=== PATIENT | female | born 1995 | race Caucasian/White ===

== ENCOUNTER 2018-10-01 14:46 | Inpatient (IN) | payer BC ==
--- NOTE | 2018-10-01 16:11 | ER Document Report ---
ED GI/ - General Chief Complaint: Abdominal Pain Stated Complaint: ABDOMINAL PAIN Time Seen by Provider: 10/01/18 16:02 Mode of Arrival: Ambulatory Information source: Patient Notes: 22-year-old female presented to ED for complaint of cough cold congestion runny nose pain, pain bilateral upper abdomen under the ribs, lower abdominal pain, no back pain anywhere. She went to [facility] this morning with a elevated temp of 102.7 and they did an EKG urine urine flu CBC and sent results with her. Patient is alert oriented respirations regular and unlabored speaking in full sentences. TRAVEL OUTSIDE OF THE [place] IN LAST 30 DAYS: No - HPI Patient complains to provider of: Abdominal pain - Upper abdomen and lower abdomen. No: Flank pain, , Vomiting Onset: Last week Timing/Duration: Intermittent Quality of pain: Achy, Sharp Severity at maximum: Moderate Severity in ED: Moderate Pain Level: 3 Location: RUQ, Suprapubic, Pelvis LMP: now Associated symptoms: Nausea. denies: Radiates to shoulder, Urinary frequency, Urinary urgency, Vomiting Exacerbated by: Deep breathing Relieved by: Denies Similar symptoms previously: Yes Recently seen / treated by doctor: Yes - Related Data Allergies/Adverse Reactions: prednisone Allergy (Verified 10/01/18 14:50) rynatan Allergy (Uncoded 10/01/18 15:48) Past Medical History - General Information source: Patient - Social History Smoking Status: Never Smoker Cigarette use (# per day): No Chew tobacco use (# tins/day): No Smoking Education Provided: No Frequency of alcohol use: Social Drug Abuse: None Family History: Reviewed & Not Pertinent Patient has suicidal ideation: No Patient has homicidal ideation: No - Past Medical History Cardiac Medical History: Reports: None Pulmonary Medical History: Reports: Hx Asthma EENT Medical History: Reports: None Neurological Medical History: Reports: None Endocrine Medical History: Reports: None Renal/ Medical History: Reports: None Malignancy Medical History: Reports: None GI Medical History: Reports: None Musculoskeletal Medical History: Reports None Skin Medical History: Reports None Psychiatric Medical History: Reports: None Traumatic Medical History: Reports: None Infectious Medical History: Reports: None Surgical Hx: Negative Past Surgical History: Reports: None - Immunizations Immunizations up to date: Yes Review of Systems - Review of Systems Constitutional: Chills, Fever, Recent illness EENT: Nose discharge, Sinus discharge Cardiovascular: No symptoms reported Respiratory: Cough Gastrointestinal: Abdominal pain, Nausea Genitourinary: No symptoms reported Female Genitourinary: No symptoms reported Musculoskeletal: No symptoms reported Skin: No symptoms reported Hematologic/Lymphatic: No symptoms reported Neurological/Psychological: No symptoms reported -: Yes All other systems reviewed and negative Physical Exam - Vital signs Vitals: Temp Pulse Resp BP Pulse Ox 99.9 F 106 H 18 115/75 98 10/01/18 14:52 10/01/18 14:52 10/01/18 14:52 10/01/18 14:52 10/01/18 14:52 Interpretation: Normal - General General appearance: Appears well, Alert - HEENT Head: Normocephalic, Atraumatic Eyes: Normal Pupils: PERRL Ears: Normal External canal: Normal Tympanic membrane: Normal Sinus: Normal - Respiratory Respiratory status: No respiratory distress Chest status: Nontender Breath sounds: Normal Chest palpation: Normal - Cardiovascular Rhythm: Regular Heart sounds: Normal auscultation Murmur: No - Abdominal Inspection: Normal Distension: No distension Bowel sounds: Normal Tenderness: Nontender Organomegaly: No organomegaly - Back Back: Normal, Nontender - Extremities General upper extremity: Normal inspection, Nontender, Normal color, Normal ROM, Normal temperature General lower extremity: Normal inspection, Nontender, Normal color, Normal ROM, Normal temperature, Normal weight bearing. No: Naa María's sign - Neurological Neuro grossly intact: Yes Cognition: Normal Orientation: AAOx4 Hayward Coma Scale Eye Opening: Spontaneous Hayward Coma Scale Verbal: Oriented Caroline Coma Scale Motor: Obeys Commands Hayward Coma Scale Total: 15 Speech: Normal Motor strength normal: LUE, RUE, LLE, RLE Sensory: Normal - Psychological Associated symptoms: Normal affect, Normal mood - Skin Skin Temperature: Warm Skin Moisture: Dry Skin Color: Normal Course - Re-evaluation Re-evalutation: 10/01/18 21:[address]k Ferris again due to the results of the ultrasound. She recommended following up with the surgeon. Dr. Melton was consulted. He will come in and examined the patient. Patient has been given reports of the labs and ultrasound report and informed that the surgery will be coming into examine her and determine her disposition. - Vital Signs Vital signs: Temp Pulse Resp BP Pulse Ox 97.4 F 92 18 112/67 100 10/01/18 18:29 10/01/18 18:29 10/01/18 18:29 10/01/18 18:29 10/01/18 18:29 - Laboratory Result Diagrams: 10/01/18 16:28 10/01/18 16:28 Laboratory results interpreted by me: 10/01/18 10/01/18 10/01/18 16:28 16:28 16:28 Seg Neutrophils % 88.3 H Lymphocytes % 5.3 L Absolute Lymphocytes 0.3 L AST 89 H ALT 81 H Alkaline Phosphatase 36 L Urine Protein 30 H Urine Ketones 80 H Urine Urobilinogen 2.0 H - Diagnostic Test Radiology reviewed: Image reviewed, Reports reviewed Discharge - Discharge Clinical Impression: abdominal pain with elevated enzymes, cholecytitis on ultrasound Disposition: ADMITTED INPATIENT [facility] Admitted: Medical Floor
[2018-10-01] MEDS ORDERED: NORMAL SALINE 1000 ML 1,000 ML IV ONE (16:12)
--- NOTE | 2018-10-01 16:34 | RADIOLOGY REPORT (SQ) ---
EXAM DESCRIPTION: CHEST 2 VIEWS COMPLETED DATE/TIME: 10/01/2018 4:22 pm REASON FOR STUDY: upper abdominal pain under the ribs bilaterally COMPARISON: 08/06/2007 EXAM PARAMETERS: NUMBER OF VIEWS: two views TECHNIQUE: Digital Frontal and Lateral radiographic views of the chest acquired. RADIATION DOSE: NA LIMITATIONS: none FINDINGS: LUNGS AND PLEURA: Mild prominence of the interstitial markings in the right infrahilar re gion may be on the basis of infiltrate. The left lung is clear. No pneumothorax or pleural effusion . MEDIASTINUM AND HILAR STRUCTURES: No masses or contour abnormalities. HEART AND VASCULAR STRUCTURES: Heart normal size. No evidence for failure. BONES: No acute findings. HARDWARE: None in the chest. OTHER: No other significant finding. IMPRESSION: 1. Mild prominence of the interstitial markings in the right infrahilar region may repr esent infiltrate. TECHNICAL DOCUMENTATION: JOB ID: [id number] [employer]- All Rights Reserved Reading location - IP/workstation name: [email or web address]
[2018-10-01 16:43] LABS: ABSOLUTE LYMPHOCYTES (AUTO) 0.3 10^3/uL (0.5-4.7); ABSOLUTE MONOCYTES (AUTO) 0.3 10^3/uL (0.1-1.4); ABSOLUTE NEUT (AUTO) 4.8 10^3/uL (1.7-8.2); BASOPHILS % (AUTO) 0.4 % (0-2); HEMATOCRIT 36.8 % (36.0-47.0); HEMOGLOBIN 12.8 g/dL (12.0-15.5); LYMPHOCYTES % (AUTO) 5.3 % (13-45); MEAN CORPUSCULAR HGB CONC 34.7 g/dL (32.0-36.0); MEAN CORPUSCULAR VOLUME 92 fl (80-97); PLATELET COUNT 207 10^3/uL (150-450); RED CELL DISTRIBUTION WIDTH 13.2 % (11.5-14.0); SEGMENTED NEUTROPHILS % (AUTO) 88.3 % (42-78); TOTAL CELLS COUNTED % (AUTO) 100 %; WHITE BLOOD COUNT 5.4 10^3/uL (4.0-10.5)
[2018-10-01 17:07] LABS: ALANINE AMINOTRANSFERASE 81 U/L (9-52); ALBUMIN 4.4 g/dL (3.5-5.0); ALKALINE PHOSPHATASE 36 U/L (38-126); ANION GAP 12 (5-19); ASPARTATE AMINO TRANSFERASE 89 U/L (14-36); BILIRUBIN,DIRECT 0.2 mg/dL (0.0-0.4); BILIRUBIN,TOTAL 0.6 mg/dL (0.2-1.3); BLOOD UREA NITROGEN 10 mg/dL (7-20); CALCIUM 9.2 mg/dL (8.4-10.2); CARBON DIOXIDE 22 mmol/L (22-30); CHLORIDE 105 mmol/L (98-107); GLUCOSE 87 mg/dL (75-110); LIPASE 55.5 U/L (23-300); SODIUM 139.2 mmol/L (137-145); TOTAL PROTEIN 6.9 g/dL (6.3-8.2)
[2018-10-01 17:39] LABS: APPEARANCE,URINE CLEAR; BILIRUBIN,URINE NEGATIVE (NEGATIVE); COLOR,URINE YELLOW; GLUCOSE, URINE NEGATIVE (NEGATIVE); KETONES,URINE 80 mg/dL (NEGATIVE); LEUKOCYTE ESTERASE,URINE NEGATIVE (NEGATIVE); NITRITE,URINE NEGATIVE (NEGATIVE); PROTEIN,URINE 30 mg/dL (NEGATIVE); URINE SPECIFIC GRAVITY 1.035
--- NOTE | 2018-10-01 21:00 | RADIOLOGY REPORT (SQ) ---
EXAM DESCRIPTION: US ABDOMEN DOPPLER LIMITED COMPLETED DATE/TME: 10/01/2018 17:32 CLINICAL HISTORY: right upper abdominal tenderness COMPARISON: None. FINDINGS: Visualized portions of the aorta are of normal caliber. Pancreas is of normal echogenicity. There is no peripancreatic fluid collection. Echogenicity of the liver is within normal limits. The right kidney demonstrates no hydronephrosis. The right kidney measures 10.2 cm in length. There are no gallstones. There is mild gallbladder wall thickening. Common bile duct measured 2.7 mm which is within limits. There is a small amount of pericholecystic fluid. IMPRESSION: Mild gallbladder wall thickening and small amount of pericholecystic fluid could be secondary to acalculus cholecystitis. Other etiologies including hyperalbuminemia are differential considerations. If indicated follow-up CT could be helpful for further evaluation.
[2018-10-01] MEDS ORDERED: MAGNESIUM HYDROXIDE SUSP 30 ML UDCUP PO PRN (23:37)
[2018-10-01] MEDS ORDERED: ONDANSETRON HCL INJ/PF 4 MG/2 ML SDV IV PRN (23:37)
[2018-10-01] MEDS ORDERED: ONDANSETRON 4 MG TAB.RAPDIS PO PRN (23:37)
[2018-10-01] MEDS ORDERED: DEXTROSE 5%-LACTATED RINGERS 1,000 ML IV PRN (23:37)
[2018-10-01] MEDS ORDERED: MAG HYDROX/AL HYDROX/SIMETH SUSP 30 ML UDCUP PO PRN (23:37)
--- NOTE | 2018-10-02 01:41 | RADIOLOGY REPORT (SQ) ---
EXAM DESCRIPTION: CT ABDOMEN PELVIS WITH IV CONTRAST COMPLETED DATE/TME: 10/02/2018 00:00 CLINICAL HISTORY: 22 years, Female, possible cholecystitis, RUQ pain, fever COMPARISON: Ultrasound from 10/01/2018 TECHNIQUE: 479 Images stored on PACS. All CT scanners at this facility use dose modulation, iterative reconstruction, and/or weight based dosing when appropriate to reduce radiation dose to as low as reasonably achievable (ALARA). [facility]: Dose Right [facility]: CareDose [facility]: Dose Right [facility]: Teradose 4D [facility]: [employer] LIMITATIONS: None. FINDINGS: Limited evaluation of the lung bases is unremarkable. Osseous structures are grossly intact. The liver, spleen, adrenal glands, pancreas, kidneys are unremarkable. There is nonspecific periportal edema. Gallbladder wall edema and/or pericholecystic fluid is noted. No gallstones were present on ultrasound however the possibility of acalculous cholecystitis should be considered. No free air. No evidence for bowel obstruction. Small amount of free fluid in the pelvis. Normal appendix. IMPRESSION: Diffuse gallbladder wall edema and/or pericholecystic fluid. No gallstones were present on recent ultrasound however the possibility of acalculous cholecystitis could be considered in the appropriate clinical setting. Small amount of free fluid in the pelvis. This may be physiologic. TECHNICAL DOCUMENTATION: Quality ID # [id number]: Final reports with documentation of one or more dose reduction techniques (e.g., Automated exposure control, adjustment of the mA and/or kV according to patient size, use of iterative reconstruction technique) copyright 2011 [employer]- All Rights Reserved
[2018-10-02] MEDS ORDERED: NALBUPHINE HCL INJ 10 MG/1 ML AMPULE IV PRN ×2 (03:51→04:00)
--- NOTE | 2018-10-02 03:57 | PDOC H&P ---
History of Present Illness Admission Date/PCP: 10/01/2018 Patient complains of: Epigastric pain History of Present Illness: MASOUD NAIR is a 22 year old female who presented to the emergency room with an acute history of epigastric abdominal pain beginning on the morning prior to coming to the emergency room. She admits to moderate to severe, constant, gripping pressure, present in the epigastric region and to a lesser degree in the right upper quadrant of her abdomen without radiation. The pain is been accompanied by a fever of 102.6 F earlier today when she presented to the urgent care center where she was subsequently sent on to the emergency room for further evaluation. She further admits to a prior similar episode approximately 1 week earlier that was not accompanied by such a high fever. He has not identified any aggravating or ameliorating factors for her abdominal pain. In the emergency room she was found to have slightly elevated liver enzymes and a gallbladder ultrasound which showed thickening of the gallbladder wall with a small amount of fluid around the gallbladder however there were no stones noted. The diagnosis of acalculous cholecystitis was provided by the radiologist interpreting her ultrasound however the systems development consultant felt that the patient did not have surgical disease, and indeed he strongly believes that she has acute hepatitis as a cause of her fever and abdominal pain. Subsequently the patient is being admitted to the hospitalist service for further evaluation and treatment. Past Medical History Cardiac Medical History: Denies: Hyperlipidema, Hypertension Pulmonary Medical History: Reports: Asthma Denies: Respiratory Failure, Tuberculosis EENT Medical History: Reports: None Neurological Medical History: Denies: Multiple Sclerosis, Seizures Endocrine Medical History: Denies: Diabetes Mellitus Type 1, Diabetes Mellitus Type 2, Hyperthyroidism, Hypothyroidism, Obesity Renal/ Medical History: Denies: Chronic Kidney Disease, Nephrolithiasis Malignancy Medical History: Reports: None GI Medical History: Denies: Cirrhosis, Crohn's Disease, Hepatitis, Ulcerative Colitis Musculoskeltal Medical History: Denies: Arthritis, Fibromyalgia Skin Medical History: Denies: Eczema, Psoriasis Psychiatric Medical History: Denies: Alcohol Dependency, Depression, General Anxiety Disorder, Substance Abuse, Tobacco Dependency Traumatic Medical History: Reports: None Hematology: Denies: Anemia, Bleeding Tendencies Infectious Medical History: Reports: None Past Surgical History Past Surgical History: Reports: None Social History Information Source: Patient Lives with: Parents Smoking Status: Never Smoker Frequency of Alcohol Use: None Hx Recreational Drug Use: No Drugs: None Hx Prescription Drug Abuse: No - Advance Directive Resuscitation Status: Full Code Surrogate healthcare decision maker:: Mother Family History Family History: Reviewed & Not Pertinent Parental Family History Reviewed: Yes Children Family History Reviewed: No Sibling(s) Family History Reviewed.: Yes Medication/Allergy Allergies/Adverse Reactions: prednisone Allergy (Verified 10/01/18 14:50) rynatan Allergy (Uncoded 10/01/18 15:48) Review of Systems Constitutional: PRESENT: fever(s). ABSENT: anorexia, chills Eyes: ABSENT: visual disturbances, other - Eye pain Ears: ABSENT: hearing changes, other - Ear pain Nose, Mouth, and Throat: ABSENT: mouth pain, sore throat Cardiovascular: ABSENT: chest pain, palpitations Respiratory: ABSENT: cough, dyspnea Gastrointestinal: PRESENT: abdominal pain. ABSENT: constipation, diarrhea, nausea, vomiting Genitourinary: ABSENT: dysuria, hematuria Musculoskeletal: ABSENT: deformity, joint swelling Integumentary: ABSENT: pruritus, rash Neurological: ABSENT: confusion, convulsions, focal weakness, memory loss Psychiatric: ABSENT: anxiety, depression Endocrine: ABSENT: cold intolerance, heat intolerance Hematologic/Lymphatic: ABSENT: easy bleeding, easy bruising Physical Exam Vital Signs: Temp Pulse Resp BP Pulse Ox 97.4 F 92 18 112/67 100 10/01/18 18:29 10/01/18 18:29 10/01/18 18:29 10/01/18 18:29 10/01/18 18:29 Intake & Output 09/29/18 09/30/18 10/01/18 23:59 23:59 23:59 Intake Total 1000 Balance 1000 Weight 46.4 kg General appearance: PRESENT: no acute distress, cooperative Head exam: PRESENT: atraumatic, normocephalic Eye exam: PRESENT: conjunctiva pink, EOMI. ABSENT: scleral icterus Ear exam: PRESENT: normal external ear exam. ABSENT: bleeding, drainage Mouth exam: PRESENT: dry mucosa, neck supple Neck exam: ABSENT: thyromegaly, tracheal deviation Respiratory exam: PRESENT: clear to auscultation jordan, symmetrical, unlabored Cardiovascular exam: PRESENT: RRR. ABSENT: clicks, gallop, rubs Pulses: PRESENT: normal radial pulses, normal dorsalis pedis pul Vascular exam: PRESENT: normal capillary refill. ABSENT: pallor GI/Abdominal exam: PRESENT: hypoactive bowel sounds, Beckett's sign, soft, tenderness - Epigastric and right upper quadrant (subcostal) Rectal exam: PRESENT: deferred Extremities exam: ABSENT: joint swelling, pedal edema Musculoskeletal exam: PRESENT: full ROM, normal inspection Neurological exam: PRESENT: alert, awake, oriented to person, oriented to place, oriented to time, oriented to situation, CN II-XII grossly intact. ABSENT: motor sensory deficit Psychiatric exam: PRESENT: appropriate affect, normal mood Skin exam: PRESENT: dry, intact, warm. ABSENT: jaundice, rash, urticaria Results Laboratory Results: 10/01/18 16:28 10/01/18 16:28 10/01/18 10/01/18 10/01/18 16:28 16:28 16:28 WBC 5.4 RBC 4.00 Hgb 12.8 Hct 36.8 MCV 92 MCH 32.0 MCHC 34.7 RDW 13.2 Plt Count 207 Seg Neutrophils % 88.3 H Lymphocytes % 5.3 L Monocytes % 6.0 Eosinophils % 0.0 Basophils % 0.4 Absolute Neutrophils 4.8 Absolute Lymphocytes 0.3 L Absolute Monocytes 0.3 Absolute Eosinophils 0.0 Absolute Basophils 0.0 Sodium 139.2 Potassium 4.0 Chloride 105 Carbon Dioxide 22 Anion Gap 12 BUN 10 Creatinine 0.73 Est GFR ( Amer) > 60 Est GFR (Non-Af Amer) > 60 Glucose 87 Calcium 9.2 Total Bilirubin 0.6 AST 89 H ALT 81 H Alkaline Phosphatase 36 L Total Protein 6.9 Albumin 4.4 Lipase 55.5 Urine Color YELLOW Urine Appearance CLEAR Urine pH 5.0 Ur Specific Hartwick 1.035 Urine Protein 30 H Urine Glucose (UA) NEGATIVE Urine Ketones 80 H Urine Blood NEGATIVE Urine Nitrite NEGATIVE Ur Leukocyte Esterase NEGATIVE Urine WBC (Auto) 0 Urine RBC (Auto) 1 Impressions: Chest X-Ray 10/01/18 16:04 IMPRESSION: 1. Mild prominence of the interstitial markings in the right infrahilar region may represent infiltrate. Abdomen Ultrasound 10/01/18 17:32 IMPRESSION: Mild gallbladder wall thickening and small amount of pericholecystic fluid could be secondary to acalculus cholecystitis. Other etiologies including hyperalbuminemia are differential considerations. If indicated follow-up CT could be helpful for further evaluation. Assessment & Plan - Diagnosis (1) Abdominal pain, acute, epigastric Is this a current diagnosis for this admission?: Yes Plan: Patient's abdominal pain will be treated with Nubain 10 mg IV every 3 hours as needed. She will additionally be followed by surgery for evaluation of her abdominal pain. (2) Elevated liver enzymes Is this a current diagnosis for this admission?: Yes Plan: Patient's elevated liver enzymes will be followed during her hospital course with daily lab work including a CBC, metabolic profile and liver function studies. A hepatitis profile is also obtained for A, B and C. (3) Fever Qualifiers: Fever type: unspecified Qualified Code(s): R50.9 - Fever, unspecified Is this a current diagnosis for this admission?: Yes Plan: Fever suspected to be from her acalculous cholecystitis. Will treat fevers symp tomatically Tylenol 650 mg p.o. every 4 hours as needed. (4) Acute acalculous cholecystitis Is this a current diagnosis for this admission?: Yes Plan: Patient be managed with supportive and symptomatic cares during her hospital cou rse while she is being evaluated by surgery for possible surgical knee. Additionally a HIDA scan is ordered for evaluation of her acalculous cholecystitis. - Time Time Spent: 30 to 50 Minutes Critical Time spent with patient: Less than 15 minutes Medications reviewed and adjusted accordingly: No - No home meds Anticipated discharge: Home - Inpatient Certification Based on my medical assessment, after consideration of the patient's comorbidities, presenting symptoms, or acuity I expect that the services needed warrant INPATIENT care.: Yes I certify that my determination is in accordance with my understanding of Medicare's requirements for reasonable and necessary INPATIENT services [42 CFR 412.3e].: Yes Medical Necessity: Need Close Monitoring Due to Risk of Patient Decompensation, Need for Pain Control, Need for Surgery, Risk of Complication if Not Cared For in Hospital
[2018-10-02] MEDS ORDERED: NORMAL SALINE 1000 ML 1,000 ML IV PRN ×2 (05:19→18:37)
[2018-10-02] MEDS ORDERED: PIPERACILLIN/TAZOBACTAM 3.375 GM VIAL IV ONE ×2 (05:23→05:44)
[2018-10-02] MEDS ORDERED: NORMAL SALINE 1000 ML 1,000 ML IV ONE (05:24)
[2018-10-02] MEDS ORDERED: PIPERACILLIN/TAZOBACTAM 3.375 GM VIAL IV PRN (05:33)
[2018-10-02] MEDS: FAMOTIDINE INJ/PF 20 MG/2 ML SDV IV SCH ×2 (05:43→18:26)
[2018-10-02] MEDS ORDERED: PIPERACILLIN SODIUM/TAZOBACTAM 3.375 GM in NORMAL SALINE 100 ML IV ONE (05:45)
[2018-10-02] MEDS ORDERED: LANSOPRAZOLE 15 MG TAB.RAP.DR PO SCH (06:00)
[2018-10-02] MEDS ORDERED: HEPARIN SOD (PORCINE) 5,000 UNIT/ML 1 ML SYRINGE SUBCUT SCH (06:00)
[2018-10-02 07:02] LABS: ALANINE AMINOTRANSFERASE 85 U/L (9-52); ALBUMIN 3.3 g/dL (3.5-5.0); ALKALINE PHOSPHATASE 41 U/L (38-126); ANION GAP 10 (5-19); ASPARTATE AMINO TRANSFERASE 81 U/L (14-36); BILIRUBIN,DIRECT 0.3 mg/dL (0.0-0.4); BILIRUBIN,TOTAL 0.5 mg/dL (0.2-1.3); BLOOD UREA NITROGEN 11 mg/dL (7-20); CALCIUM 8.5 mg/dL (8.4-10.2); CARBON DIOXIDE 19 mmol/L (22-30); CHLORIDE 108 mmol/L (98-107); CHOLESTEROL 80.28 mg/dL (0-200); LIPASE 52.9 U/L (23-300); POTASSIUM 4.3 mmol/L (3.6-5.0); SODIUM 136.9 mmol/L (137-145); TOTAL PROTEIN 5.5 g/dL (6.3-8.2); TRIGLYCERIDES 80 mg/dL (<150)
[2018-10-02 07:13] LABS: DIRECT LDL 32 mg/dL (<100)
[2018-10-02 07:16] LABS: AMYLASE < 30 U/L (30-110)
[2018-10-02 07:17] LABS: GLUCOSE 60 mg/dL (75-110)
[2018-10-02 07:19] LABS: FREE T3 3.04 pg/mL (2.77-5.27); FREE T4 (FREE THYROXINE) 1.44 ng/dL (0.78-2.19)
[2018-10-02 07:33] LABS: THYROID STIMULATING HORMONE 0.93 uIU/mL (0.47-4.68)
[2018-10-02] MEDS ORDERED: RINGERS SOLUTION,LACTATED 1,000 ML IV PRN (09:13)
[2018-10-02] MEDS ORDERED: DEXTROSE 50%-WATER 25 GM/50 ML DISP.SYRIN IV ONE ×2 (09:17→09:40)
[2018-10-02] MEDS ORDERED: DEXTROSE 5%-NORMAL SALINE 1,000 ML IV PRN (09:43)
[2018-10-02 09:57] LABS: ABSOLUTE LYMPHOCYTES (AUTO) 0.3 10^3/uL (0.5-4.7); ABSOLUTE MONOCYTES (AUTO) 0.2 10^3/uL (0.1-1.4); EOSINOPHILS % (AUTO) 0.4 % (0-6); TOTAL CELLS COUNTED % (AUTO) 100 %
[2018-10-02] MEDS ORDERED: DOCUSATE SODIUM 100 MG CAPSULE PO SCH (10:00)
[2018-10-02] MEDS ORDERED: PANTOPRAZOLE SODIUM 40 MG VIAL IV SCH (10:00)
[2018-10-02 10:06] LABS: ABSOLUTE NEUT (AUTO) 1.8 10^3/uL (1.7-8.2); BASOPHILS % (AUTO) 0.7 % (0-2); HEMATOCRIT 31.1 % (36.0-47.0); HEMOGLOBIN 10.8 g/dL (12.0-15.5); LYMPHOCYTES % (AUTO) 14.6 % (13-45); MEAN CORPUSCULAR HEMOGLOBIN 33.1 pg (27.0-33.4); MEAN CORPUSCULAR HGB CONC 34.9 g/dL (32.0-36.0); MEAN CORPUSCULAR VOLUME 95 fl (80-97); MONOCYTES % (AUTO) 7.8 % (3-13); PLATELET COUNT 133 10^3/uL (150-450); RED BLOOD COUNT 3.28 10^6/uL (3.72-5.28); SEGMENTED NEUTROPHILS % (AUTO) 76.5 % (42-78)
[2018-10-02 10:12] LABS: WHITE BLOOD COUNT 2.4 10^3/uL (4.0-10.5)
--- NOTE | 2018-10-02 12:03 | RADIOLOGY REPORT (SQ) ---
EXAM DESCRIPTION: NM HIDA SCAN COMPLETED DATE/TIME: 10/02/2018 11:49 am REASON FOR STUDY: RUQ pain COMPARISON: CT abdomen pelvis 10/02/2018 Right upper quadrant ultrasound 10/01/2018 RADIONUCLIDE AND DOSE: DOSAGE RADIONUCLIDE: 4.9 millicuries Tc99m Mebrofenin. DOSAGE MORPHINE: Not required. The route of agent administration: Intravenous TECHNIQUE: Serial imaging right upper quadrant up to 60 minutes following injection of radionuclide. Patient imaged AP and Right Lateral. LIMITATIONS: None. FINDINGS: LIVER: Normal visualization without areas of photopenia. Normal clearance of hepatobiliar y agent by 15 minutes. INTRA-HEPATIC BILE DUCTS: Normal visualization COMMON BILE DUCT: Normal visualization GALLBLADDER: Normal visualization by 8 minutes. OTHER: No other significant finding. IMPRESSION: NORMAL STUDY WITHOUT CYSTIC OR COMMON DUCT OBSTRUCTION. COMMENT: Results discussed with Dr Smith and Dr Melton TECHNICAL DOCUMENTATION: JOB ID: [id number] [employer]- All Rights Reserved Reading location - IP/workstation name: [email or web address]
--- NOTE | 2018-10-02 14:49 | PDOC PROGRESS REPORT ---
Subjective Progress Note for:: 10/02/18 Subjective:: comfortable, no n/v, or abdominal pain Reason For Visit: RIGHT UPPER QUADRANT ABDOMINAL PAIN WITH FEVER Physical Exam Vital Signs: Temp Pulse Resp BP Pulse Ox 98.2 F 76 16 115/71 100 10/02/18 11:47 10/02/18 11:47 10/02/18 11:47 10/02/18 11:47 10/02/18 11:47 Intake & Output 10/01/18 10/02/18 10/03/18 06:59 06:59 06:59 Intake Total 1000 1613 Balance 1000 1613 Weight 46.9 kg General appearance: PRESENT: no acute distress Respiratory exam: PRESENT: clear to auscultation jordan Cardiovascular exam: PRESENT: RRR GI/Abdominal exam: PRESENT: normal bowel sounds, soft Results Laboratory Results: 10/02/18 08:59 10/02/18 06:09 10/01/18 10/01/18 10/01/18 16:28 16:28 16:28 WBC 5.4 RBC 4.00 Hgb 12.8 Hct 36.8 MCV 92 MCH 32.0 MCHC 34.7 RDW 13.2 Plt Count 207 Seg Neutrophils % 88.3 H Lymphocytes % 5.3 L Monocytes % 6.0 Eosinophils % 0.0 Basophils % 0.4 Absolute Neutrophils 4.8 Absolute Lymphocytes 0.3 L Absolute Monocytes 0.3 Absolute Eosinophils 0.0 Absolute Basophils 0.0 Sodium 139.2 Potassium 4.0 Chloride 105 Carbon Dioxide 22 Anion Gap 12 BUN 10 Creatinine 0.73 Est GFR ( Amer) > 60 Est GFR (Non-Af Amer) > 60 Glucose 87 Calcium 9.2 Magnesium Total Bilirubin 0.6 AST 89 H ALT 81 H Alkaline Phosphatase 36 L Total Protein 6.9 Albumin 4.4 Triglycerides Cholesterol LDL Cholesterol Direct VLDL Cholesterol HDL Cholesterol Amylase Lipase 55.5 TSH Free T4 Free T3 pg/mL Serum HCG, Qual Urine Color YELLOW Urine Appearance CLEAR Urine pH 5.0 Ur Specific [place] 1.035 Urine Protein 30 H Urine Glucose (UA) NEGATIVE Urine Ketones 80 H Urine Blood NEGATIVE Urine Nitrite NEGATIVE Ur Leukocyte Esterase NEGATIVE Urine WBC (Auto) 0 Urine RBC (Auto) 1 10/01/18 10/02/18 10/02/18 16:28 06:09 06:09 WBC Cancelled RBC Cancelled Hgb Cancelled Hct Cancelled MCV Cancelled MCH Cancelled MCHC Cancelled RDW Cancelled Plt Count Cancelled Seg Neutrophils % Cancelled Lymphocytes % Cancelled Monocytes % Cancelled Eosinophils % Cancelled Basophils % Cancelled Absolute Neutrophils Cancelled Absolute Lymphocytes Cancelled Absolute Monocytes Cancelled Absolute Eosinophils Cancelled Absolute Basophils Cancelled Sodium 136.9 L Potassium 4.3 Chloride 108 H Carbon Dioxide 19 L Anion Gap 10 BUN 11 Creatinine 0.64 Est GFR ( Amer) > 60 Est GFR (Non-Af Amer) > 60 Glucose 60 L Calcium 8.5 Magnesium 1.9 Total Bilirubin 0.5 AST 81 H ALT 85 H Alkaline Phosphatase 41 Total Protein 5.5 L Albumin 3.3 L Triglycerides 80 Cholesterol 80.28 LDL Cholesterol Direct 32 VLDL Cholesterol 16.0 HDL Cholesterol 41 Amylase < 30 L Lipase 52.9 TSH Free T4 Free T3 pg/mL Serum HCG, Qual NEGATIVE Urine Color Urine Appearance Urine pH Ur Specific [place] Urine Protein Urine Glucose (UA) Urine Ketones Urine Blood Urine Nitrite Ur Leukocyte Esterase Urine WBC (Auto) Urine RBC (Auto) 10/02/18 10/02/18 06:09 08:59 WBC 2.4 L D RBC 3.28 L Hgb 10.8 L Hct 31.1 L MCV 95 MCH 33.1 MCHC 34.9 RDW 13.0 Plt Count 133 L Seg Neutrophils % 76.5 Lymphocytes % 14.6 Monocytes % 7.8 Eosinophils % 0.4 Basophils % 0.7 Absolute Neutrophils 1.8 Absolute Lymphocytes 0.3 L Absolute Monocytes 0.2 Absolute Eosinophils 0.0 Absolute Basophils 0.0 Sodium Potassium Chloride Carbon Dioxide Anion Gap BUN Creatinine Est GFR ( Amer) Est GFR (Non-Af Amer) Glucose Calcium Magnesium Total Bilirubin AST ALT Alkaline Phosphatase Total Protein Albumin Triglycerides Cholesterol LDL Cholesterol Direct VLDL Cholesterol HDL Cholesterol Amylase Lipase TSH 0.93 Free T4 1.44 Free T3 pg/mL 3.04 Serum HCG, Qual Urine Color Urine Appearance Urine pH Ur Specific [place] Urine Protein Urine Glucose (UA) Urine Ketones Urine Blood Urine Nitrite Ur Leukocyte Esterase Urine WBC (Auto) Urine RBC (Auto) Impressions: Chest X-Ray 10/01/18 16:04 IMPRESSION: 1. Mild prominence of the interstitial markings in the right infrahilar region may represent infiltrate. Abdomen Ultrasound 10/01/18 17:32 IMPRESSION: Mild gallbladder wall thickening and small amount of pericholecystic fluid could be secondary to acalculus cholecystitis. Other etiologies including hyperalbuminemia are differential considerations. If indicated follow-up CT could be helpful for further evaluation. Abdomen/Pelvis CT 10/02/18 00:00 IMPRESSION: Diffuse gallbladder wall edema and/or pericholecystic fluid. No gallstones were present on recent ultrasound however the possibility of acalculous cholecystitis could be considered in the appropriate clinical setting. Small amount of free fluid in the pelvis. This may be physiologic. TECHNICAL DOCUMENTATION: Quality ID # [id number]: Final reports with documentation of one or more dose reduction techniques (e.g., Automated exposure control, adjustment of the mA and/or kV according to patient size, use of iterative reconstruction technique) copyright 2011 [employer]- All Rights Reserved Hepatobiliary Scan Nuclear Medicine 10/02/18 00:00 IMPRESSION: NORMAL STUDY WITHOUT CYSTIC OR COMMON DUCT OBSTRUCTION. Assessment & Plan - Diagnosis (1) Abdominal pain, acute, epigastric Is this a current diagnosis for this admission?: Yes (2) Fever Qualifiers: Fever type: unspecified Qualified Code(s): R50.9 - Fever, unspecified Is this a current diagnosis for this admission?: Yes - Plan Summary Plan Summary: A/ HD#1 for abdominal poain, fever, elevation transaminase CT scan A/P findings confirm inflammatory changes of gallbladder extending into intrahepatimc portal vein tree HIDA scan negative for acute cholecystitis Persistent elvation transaminase WBC decreased to 2 Monospot negative Hepatitis panel pending Clear diagnosis of the patient condition not clear despite the numerous tests done so; patient will require to be evaluated by a Payroll Accounting Manager P/ After long discussion with patient and family, [facility] Service will try to transfer patient to a tertiary care center able to provide this patient with [id number] care optimal care. Regular diet
--- NOTE | 2018-10-02 18:27 | PDOC TRANSFER SUMMARY ---
General Admission Date/PCP: 10/01/18 23:45 Resuscitation Status: Full Code - Transfer Diagnosis (1) Acute acalculous cholecystitis Is this a current diagnosis for this admission?: Yes Diagnosis Summary: This previously healthy 22-year-old female presented with low-grade fever, abnormal liver chemistries and abdominal pain. Abdominal ultrasound revealed gallbladder wall edema but no gallstone was visualized. CT scan showed nonspecific periportal edema with pericholecystic fluid versus gallbladder wall edema. No obstruction was noted. HIDA scan was normal. The transaminases remain slightly elevated. The patient has not spiked a significant fever. Her vital signs are stable after receiving IV fluid. Unfortunately her white blood cell count is decreasing. Her total white blood cell count is down to 2.4 with absolute neutrophil count of only 1.8. Serology revealed negative Monospot and hepatitis serologies are pending. Her pain is improved but she is being referred for workup with a equity research analyst. (2) Abdominal pain, acute, epigastric Is this a current diagnosis for this admission?: Yes Diagnosis Summary: Improved. (3) Elevated liver enzymes Is this a current diagnosis for this admission?: Yes Diagnosis Summary: Remain slightly elevated (AST and ALT) with normal bilirubin. Alkaline phosphatase not assessed. Amylase and lipase are normal. Lipid panel reveals no hyperlipidemia. (4) Leukopenia Is this a current diagnosis for this admission?: Yes Diagnosis Summary: White blood cell count went down by 50%. There was a noticeable increase in the percentage of lymphocytes. Absolute neutrophil count is low at 1.8. - Transfer Medications Transfer Medications: Current Medications Famotidine (Pepcid Inj/Pf 20 Mg/2 Ml Sdv) 10 mg IV Q12A [facility] Stop: 11/01/18 05:59 Last Admin: 10/02/18 05:43 Dose: 10 mg Documented by: Dextrose/Sodium Chloride (D5ns 1000 Ml Iv Soln) 1,000 mls @ 75 mls/hr IV CONTINUOUS PRN PRN Reason: THIS MED IS NOT "PRN" Stop: 11/01/18 09:42 Ondansetron HCl (Zofran Inj/Pf 4 Mg/2 Ml Sdv) 4 mg IV Q4HP PRN PRN Reason: FOR NAUSEA/VOMITING Stop: 10/31/18 23:36 Ondansetron HCl (Zofran Odt 4 Mg Tablet) 4 mg PO Q4HP PRN PRN Reason: FOR NAUSEA/VOMITING Stop: 10/31/18 23:36 Sodium Chloride (Saline Flush 2.5 Ml Monoject Prefil Syrin) 2.5 ml IV Q8 MIA Stop: 11/01/18 05:59 Last Admin: 10/02/18 13:56 Dose: Not Given Documented by: - Allergies Allergies/Adverse Reactions: prednisone Allergy (Verified 10/01/18 14:50) rynatan Allergy (Uncoded 10/01/18 15:48) - Diet/Activity Discharge Diet: As Tolerated Discharge Activity: Activity As Tolerated Hospital Course Hospital Course: The patient was admitted yesterday. Abdominal ultrasound, abdominal CT scan and HIDA scan revealed a calculus cholecystitis. Transaminases staying slightly elevated but white blood cell count is decreasing. After discussion with the hospitalist at [facility] the patient was accepted in transfer for additional investigations and treatment. Physical Exam Vital Signs: Temp Pulse Resp BP Pulse Ox 98.1 F 74 16 118/67 99 10/02/18 15:25 10/02/18 15:25 10/02/18 15:25 10/02/18 15:25 10/02/18 15:25 Intake & Output 10/01/18 10/02/18 10/03/18 06:59 06:59 06:59 Intake Total 1000 1613 Balance 1000 1613 Weight 46.9 kg General appearance: PRESENT: no acute distress, thin, well-developed Head exam: PRESENT: normocephalic Eye exam: PRESENT: conjunctiva pink. ABSENT: scleral icterus Ear exam: PRESENT: normal external ear exam Mouth exam: PRESENT: moist, tongue midline Respiratory exam: PRESENT: clear to auscultation jordan, symmetrical, unlabored. ABSENT: prolonged expiratory phas, rales, rhonchi, wheezes Cardiovascular exam: PRESENT: RRR, +S1, +S2 GI/Abdominal exam: PRESENT: normal bowel sounds, soft, tenderness - Minimal te nderness right upper quadrant.. ABSENT: distended Rectal exam: PRESENT: deferred Gentrourinary exam: ABSENT: indwelling catheter Extremities exam: ABSENT: pedal edema Musculoskeletal exam: PRESENT: normal inspection Neurological exam: PRESENT: alert, awake, oriented to person, oriented to place, oriented to time, oriented to situation, CN II-XII grossly intact Psychiatric exam: PRESENT: appropriate affect, normal mood. ABSENT: agitated, anxious Focused psych exam: ABSENT: delusional, restlessness Results Laboratory Results: 10/02/18 08:59 10/02/18 06:09 10/01/18 10/02/18 10/02/18 16:28 06:09 06:09 WBC Cancelled RBC Cancelled Hgb Cancelled Hct Cancelled MCV Cancelled MCH Cancelled MCHC Cancelled RDW Cancelled Plt Count Cancelled Seg Neutrophils % Cancelled Lymphocytes % Cancelled Monocytes % Cancelled Eosinophils % Cancelled Basophils % Cancelled Absolute Neutrophils Cancelled Absolute Lymphocytes Cancelled Absolute Monocytes Cancelled Absolute Eosinophils Cancelled Absolute Basophils Cancelled Sodium 136.9 L Potassium 4.3 Chloride 108 H Carbon Dioxide 19 L Anion Gap 10 BUN 11 Creatinine 0.64 Est GFR ( Amer) > 60 Est GFR (Non-Af Amer) > 60 Glucose 60 L Calcium 8.5 Magnesium 1.9 Total Bilirubin 0.5 AST 81 H ALT 85 H Alkaline Phosphatase 41 Total Protein 5.5 L Albumin 3.3 L Triglycerides 80 Cholesterol 80.28 LDL Cholesterol Direct 32 VLDL Cholesterol 16.0 HDL Cholesterol 41 Amylase < 30 L Lipase 52.9 TSH Free T4 Free T3 pg/mL Serum HCG, Qual NEGATIVE 10/02/18 10/02/18 06:09 08:59 WBC 2.4 L D RBC 3.28 L Hgb 10.8 L Hct 31.1 L MCV 95 MCH 33.1 MCHC 34.9 RDW 13.0 Plt Count 133 L Seg Neutrophils % 76.5 Lymphocytes % 14.6 Monocytes % 7.8 Eosinophils % 0.4 Basophils % 0.7 Absolute Neutrophils 1.8 Absolute Lymphocytes 0.3 L Absolute Monocytes 0.2 Absolute Eosinophils 0.0 Absolute Basophils 0.0 Sodium Potassium Chloride Carbon Dioxide Anion Gap BUN Creatinine Est GFR ( Amer) Est GFR (Non-Af Amer) Glucose Calcium Magnesium Total Bilirubin AST ALT Alkaline Phosphatase Total Protein Albumin Triglycerides Cholesterol LDL Cholesterol Direct VLDL Cholesterol HDL Cholesterol Amylase Lipase TSH 0.93 Free T4 1.44 Free T3 pg/mL 3.04 Serum HCG, Qual Impressions: Chest X-Ray 10/01/18 16:04 IMPRESSION: 1. Mild prominence of the interstitial markings in the right infrahilar region may represent infiltrate. Abdomen Ultrasound 10/01/18 17:32 IMPRESSION: Mild gallbladder wall thickening and small amount of pericholecystic fluid could be secondary to acalculus cholecystitis. Other etiologies including hyperalbuminemia are differential considerations. If indicated follow-up CT could be helpful for further evaluation. Abdomen/Pelvis CT 10/02/18 00:00 IMPRESSION: Diffuse gallbladder wall edema and/or pericholecystic fluid. No gallstones were present on recent ultrasound however the possibility of acalculous cholecystitis could be considered in the appropriate clinical setting. Small amount of free fluid in the pelvis. This may be physiologic. TECHNICAL DOCUMENTATION: Quality ID # 436: Final reports with documentation of one or more dose reduction techniques (e.g., Automated exposure control, adjustment of the mA and/or kV according to patient size, use of iterative reconstruction technique) copyright 2011 [employer]- All Rights Reserved Hepatobiliary Scan Nuclear Medicine 10/02/18 00:00 IMPRESSION: NORMAL STUDY WITHOUT CYSTIC OR COMMON DUCT OBSTRUCTION. Plan Discharge Plan: Transfer to [facility] for additional workup and treatment. The patient understands the reason for transfer. She has been accepted and understands that transfer will occur when a bed is available. Time Spent: Greater than 30 Minutes
[2018-10-02 21:19] LABS: URINE AMPHETAMINES SCREEN NEGATIVE; URINE BARBITURATES SCREEN NEGATIVE; URINE BENZODIAZEPINES SCREEN NEGATIVE; URINE COCAINE SCREEN NEGATIVE; URINE MARIJUANA (THC) SCREEN NEGATIVE; URINE METHADONE SCREEN NEGATIVE; URINE PHENCYCLIDINE SCREEN NEGATIVE
[2018-10-03] MEDS: FAMOTIDINE INJ/PF 20 MG/2 ML SDV IV SCH (05:02)
[2018-10-03 07:04] LABS: ABSOLUTE EOSINOPHILS # (AUTO) 0.1 10^3/uL (0.0-0.6); ABSOLUTE LYMPHOCYTES (AUTO) 0.7 10^3/uL (0.5-4.7); ABSOLUTE MONOCYTES (AUTO) 0.4 10^3/uL (0.1-1.4); ABSOLUTE NEUT (AUTO) 1.4 10^3/uL (1.7-8.2); BASOPHILS % (AUTO) 0.8 % (0-2); HEMATOCRIT 31.7 % (36.0-47.0); HEMOGLOBIN 11.3 g/dL (12.0-15.5); LYMPHOCYTES % (AUTO) 28.5 % (13-45); MEAN CORPUSCULAR HEMOGLOBIN 33.7 pg (27.0-33.4); MEAN CORPUSCULAR HGB CONC 35.6 g/dL (32.0-36.0); MEAN CORPUSCULAR VOLUME 95 fl (80-97); MONOCYTES % (AUTO) 15.1 % (3-13); PLATELET COUNT 135 10^3/uL (150-450); RED BLOOD COUNT 3.35 10^6/uL (3.72-5.28); SEGMENTED NEUTROPHILS % (AUTO) 52.6 % (42-78); TOTAL CELLS COUNTED % (AUTO) 100 %; WHITE BLOOD COUNT 2.6 10^3/uL (4.0-10.5)
[2018-10-03 07:33] LABS: ALANINE AMINOTRANSFERASE 67 U/L (9-52); ALBUMIN 3.4 g/dL (3.5-5.0); ALKALINE PHOSPHATASE 54 U/L (38-126); ANION GAP 9 (5-19); ASPARTATE AMINO TRANSFERASE 57 U/L (14-36); BILIRUBIN,DIRECT 0.3 mg/dL (0.0-0.4); BILIRUBIN,TOTAL 0.3 mg/dL (0.2-1.3); BLOOD UREA NITROGEN 6 mg/dL (7-20); CALCIUM 8.9 mg/dL (8.4-10.2); CARBON DIOXIDE 25 mmol/L (22-30); CHLORIDE 106 mmol/L (98-107); GLUCOSE 73 mg/dL (75-110); POTASSIUM 4.1 mmol/L (3.6-5.0); SODIUM 139.6 mmol/L (137-145); TOTAL PROTEIN 5.6 g/dL (6.3-8.2)
[2018-10-03] MEDS ORDERED: IBUPROFEN 600 MG TABLET PO ONE (10:00)
[2018-10-03] MEDS ORDERED: FAMOTIDINE INJ/PF 20 MG/2 ML SDV IV SCH (10:00)
--- NOTE | 2018-10-03 10:01 | PDOC PROGRESS REPORT ---
Subjective Progress Note for:: 10/03/18 Subjective:: Recurrent right upper abdominal pain this morning. Reason For Visit: RIGHT UPPER QUADRANT ABDOMINAL PAIN WITH FEVER Physical Exam Vital Signs: Temp Pulse Resp BP Pulse Ox 98.3 F 82 18 117/70 100 10/03/18 00:05 10/03/18 00:05 10/03/18 00:05 10/03/18 00:05 10/03/18 00:05 Intake & Output 10/02/18 10/03/18 10/04/18 06:59 06:59 06:59 Intake Total 1000 2258 Balance 1000 2258 Weight 46.9 kg 46.7 kg General appearance: PRESENT: no acute distress, cooperative Respiratory exam: PRESENT: clear to auscultation jordan Cardiovascular exam: PRESENT: RRR GI/Abdominal exam: PRESENT: other - Soft, nondistended, mild right upper quadrant abdominal tenderness without peritoneal signs. Results Laboratory Results: 10/03/18 06:32 10/03/18 06:32 10/02/18 10/03/18 10/03/18 08:59 06:32 06:32 WBC 2.4 L D 2.6 L RBC 3.28 L 3.35 L Hgb 10.8 L 11.3 L Hct 31.1 L 31.7 L MCV 95 95 MCH 33.1 33.7 H MCHC 34.9 35.6 RDW 13.0 13.0 Plt Count 133 L 135 L Seg Neutrophils % 76.5 52.6 Lymphocytes % 14.6 28.5 Monocytes % 7.8 15.1 H Eosinophils % 0.4 3.0 Basophils % 0.7 0.8 Absolute Neutrophils 1.8 1.4 L Absolute Lymphocytes 0.3 L 0.7 Absolute Monocytes 0.2 0.4 Absolute Eosinophils 0.0 0.1 Absolute Basophils 0.0 0.0 Sodium 139.6 Potassium 4.1 Chloride 106 Carbon Dioxide 25 Anion Gap 9 BUN 6 L Creatinine 0.65 Est GFR ( Amer) > 60 Est GFR (Non-Af Amer) > 60 Glucose 73 L Calcium 8.9 Magnesium 2.0 Total Bilirubin 0.3 AST 57 H ALT 67 H Alkaline Phosphatase 54 Total Protein 5.6 L Albumin 3.4 L Impressions: Chest X-Ray 10/01/18 16:04 IMPRESSION: 1. Mild prominence of the interstitial markings in the right infrahilar region may represent infiltrate. Abdomen Ultrasound 10/01/18 17:32 IMPRESSION: Mild gallbladder wall thickening and small amount of pericholecystic fluid could be secondary to acalculus cholecystitis. Other etiologies including hyperalbuminemia are differential considerations. If indicated follow-up CT could be helpful for further evaluation. Abdomen/Pelvis CT 10/02/18 00:00 IMPRESSION: Diffuse gallbladder wall edema and/or pericholecystic fluid. No gallstones were present on recent ultrasound however the possibility of acalculous cholecystitis could be considered in the appropriate clinical setting. Small amount of free fluid in the pelvis. This may be physiologic. TECHNICAL DOCUMENTATION: Quality ID # [id number]: Final reports with documentation of one or more dose reduction techniques (e.g., Automated exposure control, adjustment of the mA and/or kV according to patient size, use of iterative reconstruction technique) copyright 2011 [employer]- All Rights Reserved Hepatobiliary Scan Nuclear Medicine 10/02/18 00:00 IMPRESSION: NORMAL STUDY WITHOUT CYSTIC OR COMMON DUCT OBSTRUCTION. Assessment & Plan - Diagnosis (1) Abdominal pain, acute, epigastric Is this a current diagnosis for this admission?: Yes Plan: Abdominal pain of unclear etiology. HIDA scan demonstrated patent cystic duct therefore acute cholecystitis ruled out. However gallbladder could still be the culprit. She is pending transfer to tertiary care facility for further evaluation today. Will make the patient n.p.o. for now and resume her IV fluids.
[2018-10-03 11:45] VITALS: BP 109/66
--- NOTE | 2018-10-03 12:48 | PDOC PROGRESS REPORT ---
Subjective Progress Note for:: 10/03/18 Subjective:: 22 y.o. healthy female presented to [facility] with abdominal pain. She was admitted for possible cholecystitis. CT scan showed nonspecific periportal edema with pericholecystic fluid versus gallbladder wall edema. No obstruction was noted. HIDA scan was normal. (+) Transaminitis. (+) Leukopenia. The plan is to transfer the patient to [facility] for additional investigations and treatment. Patient was seen this morning on rounds, she is resting comfortably in bed with mother at bedside. The patient reports experiencing sharp RUQ abdominal pain this morning. She describes the pain as moderate. She denies nausea, vomiting or diarrhea. The patient has no other complaints at this time. Nursing staff denies any concerns. On exam, the patient's abdomen is soft, tender in the RUQ, no normal bowel sounds. Otherwise, nondistended and normal appearing. No jaundice or scleral icterus. Awaiting transfer to [facility]. Reason For Visit: RIGHT UPPER QUADRANT ABDOMINAL PAIN WITH FEVER Physical Exam Vital Signs: Temp Pulse Resp BP Pulse Ox 97.9 F 69 12 109/66 98 10/03/18 11:43 10/03/18 11:43 10/03/18 11:43 10/03/18 11:43 10/03/18 11:43 Intake & Output 10/02/18 10/03/18 10/04/18 06:59 06:59 06:59 Intake Total 1000 2258 Balance 1000 2258 Weight 46.9 kg 46.7 kg General appearance: PRESENT: thin, well-developed, well-nourished Head exam: PRESENT: atraumatic Eye exam: PRESENT: conjunctiva pink, PERRLA Mouth exam: PRESENT: moist Neck exam: PRESENT: full ROM Respiratory exam: PRESENT: clear to auscultation jordan, symmetrical, unlabored Cardiovascular exam: PRESENT: RRR Pulses: PRESENT: normal radial pulses, normal dorsalis pedis pul Vascular exam: PRESENT: normal capillary refill GI/Abdominal exam: PRESENT: normal bowel sounds, soft, tenderness - RUQ. ABSENT: distended Rectal exam: PRESENT: deferred Extremities exam: PRESENT: full ROM. ABSENT: pedal edema Musculoskeletal exam: PRESENT: ambulatory, full ROM. ABSENT: tenderness Neurological exam: PRESENT: alert, awake, oriented to person, oriented to place, oriented to time, oriented to situation Psychiatric exam: PRESENT: appropriate affect Skin exam: PRESENT: dry, intact, normal color Results Laboratory Results: 10/03/18 06:32 10/03/18 06:32 10/03/18 10/03/18 06:32 06:32 WBC 2.6 L RBC 3.35 L Hgb 11.3 L Hct 31.7 L MCV 95 MCH 33.7 H MCHC 35.6 RDW 13.0 Plt Count 135 L Seg Neutrophils % 52.6 Lymphocytes % 28.5 Monocytes % 15.1 H Eosinophils % 3.0 Basophils % 0.8 Absolute Neutrophils 1.4 L Absolute Lymphocytes 0.7 Absolute Monocytes 0.4 Absolute Eosinophils 0.1 Absolute Basophils 0.0 Sodium 139.6 Potassium 4.1 Chloride 106 Carbon Dioxide 25 Anion Gap 9 BUN 6 L Creatinine 0.65 Est GFR ( Amer) > 60 Est GFR (Non-Af Amer) > 60 Glucose 73 L Calcium 8.9 Magnesium 2.0 Total Bilirubin 0.3 AST 57 H ALT 67 H Alkaline Phosphatase 54 Total Protein 5.6 L Albumin 3.4 L 10/01/18 16:28 Clean Catch Midstream Urine Culture - Final NO GROWTH 2 DAYS Impressions: Chest X-Ray 10/01/18 16:04 IMPRESSION: 1. Mild prominence of the interstitial markings in the right infrahilar region may represent infiltrate. Abdomen Ultrasound 10/01/18 17:32 IMPRESSION: Mild gallbladder wall thickening and small amount of pericholecystic fluid could be secondary to acalculus cholecystitis. Other etiologies including hyperalbuminemia are differential considerations. If indicated follow-up CT could be helpful for further evaluation. Abdomen/Pelvis CT 10/02/18 00:00 IMPRESSION: Diffuse gallbladder wall edema and/or pericholecystic fluid. No gallstones were present on recent ultrasound however the possibility of acalculous cholecystitis could be considered in the appropriate clinical setting. Small amount of free fluid in the pelvis. This may be physiologic. TECHNICAL DOCUMENTATION: Quality ID # 436: Final reports with documentation of one or more dose reduction techniques (e.g., Automated exposure control, adjustment of the mA and/or kV according to patient size, use of iterative reconstruction technique) copyright 2011 [employer]- All Rights Reserved Hepatobiliary Scan Nuclear Medicine 10/02/18 00:00 IMPRESSION: NORMAL STUDY WITHOUT CYSTIC OR COMMON DUCT OBSTRUCTION. Status: Imported from PACS Assessment & Plan - Diagnosis (1) Acute acalculous cholecystitis Is this a current diagnosis for this admission?: Yes Plan: Abdominal US revealed gallbladder wall edema, no gallstones CT scan shows nonspecific sekou-portal edema with pericholecystic fluid versus gallbladder wall edema. No obstruction noted. HIDA scan normal. Initial AST/ALT 89/81 -slightly elevated Afebrile. Nontoxic-appearing. Since admission, the patient has developed leukopenia. WBC 5.4-->2.4 Absolute neutrophil count only 1.8 Hepatitis serologies pending (2) Abdominal pain, acute, epigastric Is this a current diagnosis for this admission?: Yes Plan: Significantly improved Unclear etiology at this time (3) Elevated liver enzymes Is this a current diagnosis for this admission?: Yes Plan: Initial AST/ALT 89/81 -->57/67 Amylase, lipase and lipid panel normal (4) Leukopenia Is this a current diagnosis for this admission?: Yes Plan: Worsening. Unclear etiology. Possible hepatitis. WBC 5.4-->2.4 Noticeable increase in the percentage of lymphocytes - Time Time Spent with patient: 15-24 minutes Medications reviewed and adjusted accordingly: Yes Anticipated discharge: [facility] Within: when bed available - Inpatient Certification Based on my medical assessment, after consideration of the patient's comorbidities, presenting symptoms, or acuity I expect that the services needed warrant INPATIENT care.: Yes I certify that my determination is in accordance with my understanding of Medicare's requirements for reasonable and necessary INPATIENT services [42 CFR 412.3e].: Yes Medical Necessity: Need For IV Fluids, Need for Surgery, Risk of Complication if Not Cared For in Hospital - Plan Summary Plan Summary: TRANSFER TO [facility]
[2018-10-03 13:39] LABS: HEPATITIS A AB IGM Negative (Negative); HEPATITIS B CORE AB IGM Negative (Negative); HEPATITS B SURFACE ANTIGEN Negative (Negative)
[2018-10-03 14:26] LABS: HEPATITIS C VIRUS ANTIBODY <0.1 s/co ratio (0.0-0.9)
== END 2018-10-03 14:43 | disposition short-term general hospital (02) | DRG 446 ==
LOC: ER 14:46 → EH 23:45 → 2N 10-02 03:29
PROVIDERS: ADMIT Emergency Medicine; ATTEND Emergency Medicine
DX: K81.0 Acute cholecystitis (principal); D72.819 Decreased white blood cell count, unspecified; Z79.899 Other long term (current) drug therapy; Z88.8 Allergy status to other drugs, medicaments and biological substances
CPT/HCPCS: 36415; 71046; 74177; 76705; 78226; 80048; 80053; 80061; 80074; 80076; 80307; 81001; 82150; 83690; 83735; 84439; 84443; 84481; 84703; 85025; 86308; 87086; 93976; 96360; 96361; 99285; A9537; J2543; J3490; J7030; Q9969; S0028